=== PATIENT | female | born 1955 | race African-American/Black ===

== ENCOUNTER 2023-09-18 21:22 | Inpatient (IN) | payer MEDICARE, SELFPAY ==
[~2023-09-18] VITALS: Ht 170.2 cm; Wt 101.6 kg
[~2023-09-18 21:22] MED LIST: UNRESOLVED CLARIFICATION ENTRY XX SCH
[2023-09-18] MEDS: NS 1,000 ML IV ONE ×2 (21:55→22:45)
[2023-09-18 22:08] LABS: VENOUS BASE EXCESS -16.8 (-2.0-2.0); VENOUS HCO3 11.1 MMOL/L (23.0-27.0); VENOUS O2 SATURATION 93.6 % (60.0-80.0); VENOUS PARTIAL PRESSURE CO2 33.1 mmHg (38.0-50.0); VENOUS PARTIAL PRESSURE O2 80.9 mmHg (30.0-50.0); VENOUS PH 7.142 UNITS (7.330-7.430); VENOUS STANDARD HCO3 12.2 MMOL/L; VENOUS TOTAL CO2 12.1 MMOL/L (24.0-28.0)
[2023-09-18 22:22] LABS: BASO # 0.1 10^3/uL (0.0-0.2); BASO % 0.3 % (0.0-1.0); HEMATOCRIT 48.9 % (36.0-47.0); HEMOGLOBIN 15.4 g/dl (12.0-15.5); LYMPH # 1.3 10^3/uL (1.5-5.0); LYMPH % 8.7 % (24.0-44.0); MEAN CORPUSCULAR HEMOGLOBIN 27.9 pg (27.0-33.0); MEAN CORPUSCULAR HGB CONC 31.5 g/dl (32.0-36.5); MEAN CORPUSCULAR VOLUME 88.7 fl (80.0-96.0); MONO # 1.3 10^3/uL (0.0-0.8); MONO % 8.5 % (2.0-8.0); NEUTROPHILS # 12.1 10^3/uL (1.5-8.5); NEUTROPHILS % 81.8 % (36.0-66.0); PLATELET COUNT, AUTOMATED 173 10^3/uL (150-450); RED BLOOD COUNT 5.51 10^6/uL (4.00-5.40); WHITE BLOOD COUNT 14.8 10^3/uL (4.0-10.0)
[2023-09-18 22:40] LABS: CK-MB VALUE MASS < 1.0 NG/ML (<3.6); CPK CREATINE PHOSPHOKINASE 57 U/L (34-145); MB/CK RELATIVE INDEX 1.75 (< OR =4)
[2023-09-18] MEDS: HumuLIN R (REGULAR) INSULIN (NovoLIN R) **100U/ML** PER UNIT IV ONE (22:44)
[2023-09-18] MEDS: hydrALAZINE 20MG/ML 1ML VIAL IV ONE (22:45)
[2023-09-18 23:31] LABS: OSMOLALITY SERUM 326 MOSM/KG (280-301)
[2023-09-18 23:50] LABS: ALBUMIN 3.5 G/DL (3.2-5.2); ALKALINE PHOSPHATASE 161 U/L (46-116); ALT/SGPT 43 U/L (7.0-40); AST/SGOT 22 U/L (<34); BILIRUBIN,DIRECT 0.2 MG/DL (<0.4); BILIRUBIN,TOTAL 0.5 MG/DL (0.3-1.2); BLOOD UREA NITROGEN 25 MG/DL (9-23); CALCIUM LEVEL 11.6 MG/DL (8.3-10.6); CARBON DIOXIDE LEVEL 13 MMOL/L (20-31); CHLORIDE LEVEL 99 MMOL/L (98-107); CREATININE FOR GFR 1.19 MG/DL (0.55-1.30); GLOMERULAR FILTRATION RATE 58.5 (>45); GLUCOSE, FASTING 564 MG/DL (74-106); LIPASE > 3500 U/L (12-53); POTASSIUM SERUM 5.2 MMOL/L (3.5-5.1); SODIUM LEVEL 133 MMOL/L (136-145); TOTAL PROTEIN 7.1 G/DL (5.7-8.2)
[2023-09-18] MEDS ORDERED: LABETALOL 100MG/20ML VIAL IV STA (23:50)
[2023-09-18] MEDS ORDERED: INSULIN IV RATE CHANGE DOCUMENTATION ML/HR XX SCH (23:55)
[2023-09-18] MEDS ORDERED: NS 1,000 ML IV SCH (23:55)
[2023-09-18] MEDS ORDERED: ISOVUE-370 76% 100ML VIAL As Ordered ONE (23:59)
[2023-09-19] VITALS (32 sets, daily range): BP systolic 120–209; BP diastolic 68–123; TEMP 97–101.1; O2SAT 96–100
[2023-09-19] MEDS: LR 1,000 ML IV SCH ×2 (00:30→17:01)
[2023-09-19] MEDS ORDERED: INSULIN REGULAR IN 0.9 % NACL 100 UNIT in IV 1 EA IV SCH ×2 (00:30→03:05)
[2023-09-19] MEDS ORDERED: ONDANSETRON 4MG 2ML VIAL IV PRN (00:30)
[2023-09-19] MEDS ORDERED: MED REC CURRENTLY UNOBTAINABLE XX SCH (00:30)
[2023-09-19] MEDS: ONDANSETRON 4MG 2ML VIAL IV ONE (00:52)
[2023-09-19] MEDS: MORPHINE 4 MG/ML 1ML VIAL IV ONE (00:53)
[2023-09-19] MEDS: INSULIN REGULAR IN 0.9 % NACL 100 UNIT in IV 1 EA IV SCH (01:07)
[2023-09-19] MEDS: INSULIN IV RATE CHANGE DOCUMENTATION ML/HR XX SCH ×2 (02:04→03:16)
[2023-09-19] MEDS: LABETALOL 100MG/20ML VIAL IV PRN (02:24)
[2023-09-19] MEDS: HYDROMORPHONE HCL 0.5 MG/ 0.5 ML SYRINGE IV PRN ×2 (02:29)
[2023-09-19] MEDS: LR 1,000 ML IV ONE (02:31)
[2023-09-19 02:43] LABS: VENOUS HCO3 11.6 MMOL/L (23.0-27.0); VENOUS O2 SATURATION 94.2 % (60.0-80.0); VENOUS PARTIAL PRESSURE CO2 30.5 mmHg (38.0-50.0); VENOUS PARTIAL PRESSURE O2 79.1 mmHg (30.0-50.0); VENOUS PH 7.199 UNITS (7.330-7.430); VENOUS STANDARD HCO3 13.3 MMOL/L; VENOUS TOTAL CO2 12.6 MMOL/L (24.0-28.0)
[2023-09-19 03:12] LABS: HEMOGLOBIN A1c 13.4 % (4.0-6.0)
[2023-09-19] MEDS: ACETAMINOPHEN *IV* 1,000 MG in IV 1 EA IV ONE (03:19)
[2023-09-19] MEDS: PIPERACILLIN/TAZOBACTAM SOD 4.5 GM in D5W MINI-BAG PLUS 50 ML IV SCH (03:42)
[2023-09-19 03:51] LABS: PROCALCITONIN 0.08 ng/ml
[2023-09-19 03:53] LABS: ALBUMIN 3.3 G/DL (3.2-5.2); ALKALINE PHOSPHATASE 142 U/L (46-116); ALT/SGPT 41 U/L (7.0-40); AST/SGOT 40 U/L (<34); BILIRUBIN,TOTAL 0.4 MG/DL (0.3-1.2); BLOOD UREA NITROGEN 22 MG/DL (9-23); CALCIUM LEVEL 10.7 MG/DL (8.3-10.6); CARBON DIOXIDE LEVEL < 10.0 MMOL/L (20-31); CHLORIDE LEVEL 107 MMOL/L (98-107); CHOLESTEROL LEVEL 139 MG/DL (<200); CHOLESTEROL RISK RATIO 4.55 (<5); CREATININE FOR GFR 0.98 MG/DL (0.55-1.30); GLOMERULAR FILTRATION RATE > 60.0 (>45); GLUCOSE, FASTING 416 MG/DL (74-106); HDL CHOLESTEROL 30.5 MG/DL (>40); LDL CHOLESTEROL 84.3 MG/DL (<100); MAGNESIUM LEVEL 1.7 MG/DL (1.8-2.4); NON-HDL-C 108.5 MG/DL; POTASSIUM SERUM 5.7 MMOL/L (3.5-5.1); SODIUM LEVEL 136 MMOL/L (136-145); TOTAL PROTEIN 6.7 G/DL (5.7-8.2); TRIGLYCERIDES LEVEL 121 MG/DL (<150)
[2023-09-19] MEDS: MAG SULF 1GM/100ML (MAG RUN) 1 GM in IV 1 EA IV ONE (04:34)
[2023-09-19 05:26] LABS: VENOUS BASE EXCESS -10.2 (-2.0-2.0); VENOUS HCO3 14.7 MMOL/L (23.0-27.0); VENOUS O2 SATURATION 99.2 % (60.0-80.0); VENOUS PARTIAL PRESSURE CO2 30.2 mmHg (38.0-50.0); VENOUS PARTIAL PRESSURE O2 170.1 mmHg (30.0-50.0); VENOUS PH 7.305 UNITS (7.330-7.430); VENOUS STANDARD HCO3 16.5 MMOL/L; VENOUS TOTAL CO2 15.6 MMOL/L (24.0-28.0)
[2023-09-19 05:37] LABS: BASO # 0.1 10^3/uL (0.0-0.2); BASO % 0.5 % (0.0-1.0); EOS % 0.1 % (0.0-3.0); HEMATOCRIT 41.9 % (36.0-47.0); HEMOGLOBIN 13.6 g/dl (12.0-15.5); LYMPH # 1.7 10^3/uL (1.5-5.0); MEAN CORPUSCULAR HEMOGLOBIN 27.8 pg (27.0-33.0); MEAN CORPUSCULAR HGB CONC 32.5 g/dl (32.0-36.5); MEAN CORPUSCULAR VOLUME 85.7 fl (80.0-96.0); MONO # 0.9 10^3/uL (0.0-0.8); MONO % 7.2 % (2.0-8.0); NEUTROPHILS # 10.2 10^3/uL (1.5-8.5); NEUTROPHILS % 78.8 % (36.0-66.0); PLATELET COUNT, AUTOMATED 131 10^3/uL (150-450); RED BLOOD COUNT 4.89 10^6/uL (4.00-5.40); WHITE BLOOD COUNT 12.9 10^3/uL (4.0-10.0)
[2023-09-19 05:57] LABS: ALBUMIN 2.9 G/DL (3.2-5.2); ALKALINE PHOSPHATASE 125 U/L (46-116); ALT/SGPT 34 U/L (7.0-40); AST/SGOT 24 U/L (<34); BILIRUBIN,TOTAL 0.5 MG/DL (0.3-1.2); BLOOD UREA NITROGEN 22 MG/DL (9-23); CALCIUM LEVEL 10.5 MG/DL (8.3-10.6); CARBON DIOXIDE LEVEL 17 MMOL/L (20-31); CHLORIDE LEVEL 110 MMOL/L (98-107); CREATININE FOR GFR 1.01 MG/DL (0.55-1.30); GLOMERULAR FILTRATION RATE > 60.0 (>45); GLUCOSE, FASTING 317 MG/DL (74-106); MAGNESIUM LEVEL 2.2 MG/DL (1.8-2.4); POTASSIUM SERUM 4.5 MMOL/L (3.5-5.1); SODIUM LEVEL 137 MMOL/L (136-145); TOTAL PROTEIN 5.9 G/DL (5.7-8.2)
[2023-09-19] MEDS: D5W/0.45% SODIUM CHLORIDE 1,000 ML IV SCH (06:53)
[2023-09-19] MEDS: SODIUM PHOSPHATE INJ 20 MMOL in D5W 250 ML IV ONE (10:44)
[2023-09-19] MEDS ORDERED: LORA-622 PO (10:58)
[2023-09-19] MEDS ORDERED: FLUTISP NARES (10:58)
[2023-09-19] MEDS ORDERED: VITA500T10 PO (10:58)
[2023-09-19] MEDS ORDERED: METO50TA7 PO (10:58)
[2023-09-19] MEDS ORDERED: METF10004 PO (10:58)
[2023-09-19] MEDS ORDERED: D31000CA4 PO (10:59)
[2023-09-19] MEDS ORDERED: B-12100021 PO (10:59)
[2023-09-19] MEDS ORDERED: med rec comment (11:00)
[2023-09-19] MEDS ORDERED: HOME MED LIST COMPLETE! XX SCH (11:00)
[2023-09-19 11:12] LABS: BLOOD UREA NITROGEN 21 MG/DL (9-23); CALCIUM LEVEL 10.8 MG/DL (8.3-10.6); CARBON DIOXIDE LEVEL 20 MMOL/L (20-31); CHLORIDE LEVEL 110 MMOL/L (98-107); CREATININE FOR GFR 0.95 MG/DL (0.55-1.30); GLOMERULAR FILTRATION RATE > 60.0 (>45); GLUCOSE, FASTING 228 MG/DL (74-106); PHOSPHORUS LEVEL 1.7 MG/DL (2.4-5.1); POTASSIUM SERUM 4.1 MMOL/L (3.5-5.1); SODIUM LEVEL 138 MMOL/L (136-145)
[2023-09-19] MEDS ORDERED: SODIUM PHOSPHATE INJ 30 MMOL in D5W 500 ML IV ONE (11:30)
[2023-09-19] MEDS: LEVEMIR (INSULIN DETEMIR) 1 UNITS/0.01ML SC ONE (11:48)
[2023-09-19] MEDS ORDERED: RAMI10CA64 PO (11:59)
[2023-09-19] MEDS ORDERED: FLUTICASONE PROP 0.05% NASAL SPRAY 16 GM (FLONASE) NARES PRN (12:25)
[2023-09-19] MEDS: ASCORBIC ACID 500 MG TAB PO SCH (13:02)
[2023-09-19] MEDS: METOPROLOL TART 50 MG TAB PO SCH (13:04)
[2023-09-19] MEDS: LORATADINE 10 MG TAB PO SCH (13:05)
[2023-09-19] MEDS: ramipriL 5 MG CAP PO SCH (13:06)
[2023-09-19] MEDS: HEPARIN SOD (PORCINE) 5000UNITS/ML 1ML VIAL/SYRINGE SC SCH (13:06)
[2023-09-19 16:31] LABS: BLOOD UREA NITROGEN 13 MG/DL (9-23); CARBON DIOXIDE LEVEL 18 MMOL/L (20-31); CHLORIDE LEVEL 109 MMOL/L (98-107); CREATININE FOR GFR 0.81 MG/DL (0.55-1.30); GLOMERULAR FILTRATION RATE > 60.0 (>45); GLUCOSE, FASTING 290 MG/DL (74-106); LIPASE 1571 U/L (12-53); POTASSIUM SERUM 3.6 MMOL/L (3.5-5.1); SODIUM LEVEL 136 MMOL/L (136-145)
[2023-09-19] MEDS ORDERED: oxyCODONE 5MG TAB PO PRN (16:45)
[2023-09-19] MEDS: INSULIN LISPRO (NovoLOG) PER UNIT SC SCH ×2 (17:02→21:08)
[2023-09-19 17:04] LABS: ACETONE/KETONE > 4.50 MMOL/L (0.02-0.27)
[2023-09-19] MEDS ORDERED: LEVEMIR (INSULIN DETEMIR) 1 UNITS/0.01ML SC SCH (21:00)
[2023-09-19] MEDS: LEVEMIR (INSULIN DETEMIR) 1 UNITS/0.01ML SC SCH (21:08)
[2023-09-20] VITALS (7 sets, daily range): BP systolic 146–207; BP diastolic 83–106; TEMP 97.1–98.2; O2SAT 95–99
[2023-09-20] MEDS: hydrALAZINE 20MG/ML 1ML VIAL IV PRN (04:40)
[2023-09-20 04:41] LABS: BASO % 0.3 % (0.0-1.0); EOS % 0.1 % (0.0-3.0); HEMATOCRIT 40.6 % (36.0-47.0); HEMOGLOBIN 13.5 g/dl (12.0-15.5); LYMPH # 1.9 10^3/uL (1.5-5.0); LYMPH % 16.8 % (24.0-44.0); MEAN CORPUSCULAR HEMOGLOBIN 28.2 pg (27.0-33.0); MEAN CORPUSCULAR HGB CONC 33.3 g/dl (32.0-36.5); MEAN CORPUSCULAR VOLUME 84.8 fl (80.0-96.0); MONO # 1.1 10^3/uL (0.0-0.8); MONO % 9.4 % (2.0-8.0); NEUTROPHILS # 8.4 10^3/uL (1.5-8.5); NEUTROPHILS % 73.1 % (36.0-66.0); PLATELET COUNT, AUTOMATED 106 10^3/uL (150-450); RED BLOOD COUNT 4.79 10^6/uL (4.00-5.40); WHITE BLOOD COUNT 11.6 10^3/uL (4.0-10.0)
[2023-09-20 05:23] LABS: BLOOD UREA NITROGEN 13 MG/DL (9-23); CALCIUM LEVEL 10.3 MG/DL (8.3-10.6); CARBON DIOXIDE LEVEL 22 MMOL/L (20-31); CHLORIDE LEVEL 107 MMOL/L (98-107); CREATININE FOR GFR 0.72 MG/DL (0.55-1.30); GLOMERULAR FILTRATION RATE > 60.0 (>45); GLUCOSE, FASTING 212 MG/DL (74-106); LIPASE 805 U/L (12-53); MAGNESIUM LEVEL 1.6 MG/DL (1.8-2.4); SODIUM LEVEL 135 MMOL/L (136-145)
[2023-09-20] MEDS: CAPTOpril 6.25 MG PER 1/2 TABLET PO SCH (07:59)
[2023-09-20] MEDS: LEVEMIR (INSULIN DETEMIR) 1 UNITS/0.01ML SC SCH (08:00)
[2023-09-20] MEDS: MAGNESIUM OXIDE 400MG TAB (MAG-OX) PO SCH (08:00)
[2023-09-20] MEDS: CHLORTHALIDONE 25 MG TAB PO SCH (08:02)
[2023-09-20] MEDS: ACETAMINOPHEN TAB 650MG DOSE (2X325MG) PO PRN (08:42)
[2023-09-20 11:47] LABS: PHOSPHORUS LEVEL 1.5 MG/DL (2.4-5.1)
[2023-09-20] MEDS: MAG SULF 1GM/100ML (MAG RUN) 1 GM in IV 1 EA IV SCH (17:57)
[2023-09-20] MEDS: CAPTOpril 12.5 MG TAB PO SCH (21:21)
[2023-09-20] MEDS: SODIUM PHOSPHATE INJ 30 MMOL in D5W 500 ML IV ONE (22:52)
[2023-09-21 03:49] VITALS: BP 164/90; TEMP 97; O2SAT 97
[2023-09-21 05:21] VITALS: BP 146/80
[2023-09-21 06:12] LABS: BASO % 0.3 % (0.0-1.0); EOS % 0.3 % (0.0-3.0); HEMATOCRIT 37.2 % (36.0-47.0); HEMOGLOBIN 12.3 g/dl (12.0-15.5); LYMPH % 20.6 % (24.0-44.0); MEAN CORPUSCULAR HGB CONC 33.1 g/dl (32.0-36.5); MEAN CORPUSCULAR VOLUME 84.7 fl (80.0-96.0); MONO # 0.9 10^3/uL (0.0-0.8); MONO % 9.2 % (2.0-8.0); NEUTROPHILS # 6.8 10^3/uL (1.5-8.5); NEUTROPHILS % 68.6 % (36.0-66.0); RED BLOOD COUNT 4.39 10^6/uL (4.00-5.40); WHITE BLOOD COUNT 9.9 10^3/uL (4.0-10.0)
[2023-09-21 06:44] LABS: ALBUMIN 2.2 G/DL (3.2-5.2); BLOOD UREA NITROGEN 8 MG/DL (9-23); CALCIUM LEVEL 8.9 MG/DL (8.3-10.6); CARBON DIOXIDE LEVEL 26 MMOL/L (20-31); CHLORIDE LEVEL 100 MMOL/L (98-107); CREATININE FOR GFR 0.66 MG/DL (0.55-1.30); GLOMERULAR FILTRATION RATE > 60.0 (>45); GLUCOSE, FASTING 116 MG/DL (74-106); PHOSPHORUS LEVEL 1.6 MG/DL (2.4-5.1); POTASSIUM SERUM 3.4 MMOL/L (3.5-5.1); SODIUM LEVEL 133 MMOL/L (136-145)
[2023-09-21 06:47] LABS: PLATELET COUNT, AUTOMATED 91 10^3/uL (150-450)
[2023-09-21 08:00] VITALS: BP 182/98; TEMP 99.9; O2SAT 97
[2023-09-21] MEDS: CARVedilol 12.5 MG TAB PO SCH (08:54)
[2023-09-21] MEDS: LEVEMIR (INSULIN DETEMIR) 1 UNITS/0.01ML SC SCH (08:56)
[2023-09-21] MEDS: POTASSIUM PHOSPHATE INJ 30 MMOL in D5W 500 ML IV ONE (11:31)
[2023-09-21 12:11] VITALS: BP 142/81; TEMP 98; O2SAT 96
[2023-09-21 13:13] LABS: FIBRINOGEN 464 MG/DL (268-480); INR 1.14; PARTIAL THROMBOPLASTIN TIME 27.6 SECONDS (24.8-34.2); PROTHROMBIN TIME 14.3 SECONDS (12.5-14.5)
[2023-09-21 14:34] LABS: D-DIMER QUANT > 20.00 ug/mL (<0.5)
[2023-09-21] MEDS ORDERED: ATOR40TA75 PO (16:51)
[2023-09-21] MEDS ORDERED: BASA100I SC (16:51)
[2023-09-21] MEDS ORDERED: ALCOPAD25 TOP (16:51)
[2023-09-21] MEDS ORDERED: CARV12.5 PO (16:51)
[2023-09-21] MEDS ORDERED: PEN-308 SC (16:51)
[2023-09-21] MEDS ORDERED: BLOOKIT21 XX (16:51)
[2023-09-21] MEDS ORDERED: LISI40TA4 PO (16:51)
[2023-09-21] MEDS ORDERED: LANC30MI XX (16:51)
[2023-09-21] MEDS ORDERED: GLUC1TES2 XX (16:51)
[2023-09-21 16:55] VITALS: BP 190/98; TEMP 97.9; O2SAT 95
[2023-09-21 19:20] VITALS: BP 174/76; TEMP 97.9; O2SAT 95
[2023-09-22 00:04] VITALS: BP 169/72; TEMP 98; O2SAT 98
[2023-09-22 04:30] VITALS: BP 173/93; TEMP 98.2; O2SAT 96
[2023-09-22 06:54] LABS: BASO % 0.4 % (0.0-1.0); EOS # 0.1 10^3/uL (0.0-0.5); EOS % 1.1 % (0.0-3.0); HEMATOCRIT 35.3 % (36.0-47.0); HEMOGLOBIN 11.9 g/dl (12.0-15.5); LYMPH # 2.2 10^3/uL (1.5-5.0); LYMPH % 26.7 % (24.0-44.0); MEAN CORPUSCULAR HEMOGLOBIN 28.4 pg (27.0-33.0); MEAN CORPUSCULAR HGB CONC 33.7 g/dl (32.0-36.5); MEAN CORPUSCULAR VOLUME 84.2 fl (80.0-96.0); MONO % 12.3 % (2.0-8.0); NEUTROPHILS # 4.9 10^3/uL (1.5-8.5); NEUTROPHILS % 58.7 % (36.0-66.0); PLATELET COUNT, AUTOMATED 111 10^3/uL (150-450); RED BLOOD COUNT 4.19 10^6/uL (4.00-5.40); WHITE BLOOD COUNT 8.4 10^3/uL (4.0-10.0)
[2023-09-22 07:48] LABS: ALBUMIN 2.2 G/DL (3.2-5.2); BLOOD UREA NITROGEN 6 MG/DL (9-23); CALCIUM LEVEL 9.6 MG/DL (8.3-10.6); CARBON DIOXIDE LEVEL 28 MMOL/L (20-31); CHLORIDE LEVEL 103 MMOL/L (98-107); CREATININE FOR GFR 0.68 MG/DL (0.55-1.30); GLOMERULAR FILTRATION RATE > 60.0 (>45); GLUCOSE, FASTING 95 MG/DL (74-106); MAGNESIUM LEVEL 1.9 MG/DL (1.8-2.4); PHOSPHORUS LEVEL 2.1 MG/DL (2.4-5.1); POTASSIUM SERUM 3.1 MMOL/L (3.5-5.1); SODIUM LEVEL 138 MMOL/L (136-145)
[2023-09-22] MEDS: ATORVASTATIN 20 MG TAB PO SCH (08:34)
[2023-09-22] MEDS: POTASSIUM CHLORIDE 10MEQ SR TABLET PO ONE (08:35)
[2023-09-22 09:19] LABS: ALBUMIN 2.3 G/DL (3.2-5.2); BILIRUBIN,DIRECT 0.4 MG/DL (<0.4); BILIRUBIN,TOTAL 0.9 MG/DL (0.3-1.2); TOTAL PROTEIN 5.4 G/DL (5.7-8.2)
[2023-09-22] MEDS ORDERED: MAGN400T2 PO (10:16)
[2023-09-22] MEDS ORDERED: ONDA-282 PO (10:16)
[2023-09-22] MEDS ORDERED: NEUTPW PO (10:25)
[2023-09-22] MEDS: POTASSIUM PHOSPHATE INJ 30 MMOL in D5W 500 ML IV ONE (10:50)
[2023-09-22 12:00] VITALS: BP 156/83; TEMP 97.9; O2SAT 98
[2023-09-22 12:57] VITALS: BP 128/76
[2023-09-22] MEDS: CAPTOpril 12.5 MG TAB PO SCH (12:57)
== END 2023-09-22 16:31 | disposition home or self-care (01) | DRG 438 ==
LOC: M ED 21:22 → EDBD 21:22 → M ED INP 09-19 00:24 → M ICU 09-19 01:54 → M PCU 09-20 16:07 → M MSPAV 09-22 02:58
PROVIDERS: ADMIT Preventive Medicine Undersea and Hyperbaric Medicine; ATTEND Student in an Organized Health Care Education/Training Program
DX: K85.90 Acute pancreatitis without necrosis or infection, unspecified (principal); E11.10 Type 2 diabetes mellitus with ketoacidosis without coma; E83.52 Hypercalcemia; I10 Essential (primary) hypertension; E78.5 Hyperlipidemia, unspecified; E66.9 Obesity, unspecified; I16.0 Hypertensive urgency; E86.0 Dehydration; Z79.84 Long term (current) use of oral hypoglycemic drugs; Z79.899 Other long term (current) drug therapy; E87.5 Hyperkalemia; D69.6 Thrombocytopenia, unspecified; E83.39 Other disorders of phosphorus metabolism; K76.0 Fatty (change of) liver, not elsewhere classified; T45.515A Adverse effect of anticoagulants, initial encounter